=== PATIENT | male | born 1985 | race Caucasian/White ===

== ENCOUNTER 2019-11-28 20:04 | Emergency (ER) | payer SELFPAY ==
[2019-11-28 23:02] LABS: Urine Blood TRACE (NEG); Urine Glucose NEGATIVE (NEG); Urine Protein TRACE (NEG); Urine pH 5.5 (5.0-7.0)
--- NOTE | 2019-11-28 23:15 | RAD REPORT ---
EXAM DESCRIPTION: RAD - Chest Single View - 11/28/2019 10:33 pm CLINICAL HISTORY: FEVER Chest pain. COMPARISON: <Comparisons> FINDINGS: Portable technique limits examination quality. The lungs are grossly clear. The heart is normal in size. No displaced fractures. IMPRESSION: No acute intrathoracic process suspected.
[2019-11-28 23:29] LABS: Absolute Lymphocytes (CBC) 1.1 K/uL (0.7-4.9); Basophils % 0.7 % (0-1.3); Hematocrit 36.4 % (39.6-49.0); Lymphocytes % 12.8 % (15.3-44.8); MPV 8.6 fL (7.6-11.3); RBC Red Blood Cell Count 4.17 M/uL (4.33-5.43)
[2019-11-28 23:32] LABS: Protime INR 1.11
[2019-11-29 00:20] LABS: ALT/SGPT 185 U/L (12-78); AST/SGOT 100 U/L (15-37); Albumin 2.6 g/dL (3.4-5.0); Alkaline Phosphatase 901 U/L (45-117); Amylase Level 46 U/L (25-115); BUN Blood Urea Nitrogen 11 mg/dL (7-18); Bicarbonate 28 mmol/L (21-32); Bilirubin Direct 0.5 mg/dL (0-0.2); Bilirubin Total 0.7 mg/dL (0.2-1.0); Glucose Level 106 mg/dL (74-106); Lipase 87 U/L (73-393); Potassium 4.5 mmol/L (3.5-5.1); Protein, Total 8.5 g/dL (6.4-8.2); Sodium Level 135 mmol/L (136-145)
[2019-11-29 00:21] LABS: Urine Bacteria <20 /HPF (NONE SEEN); Urine Culture Reflex Order NOT NEEDED; Urine RBC <5 /HPF (NONE SEEN); Urine Urothelial Cells <5 /HPF (NONE SEEN)
--- NOTE | 2019-11-29 01:05 | EDPHYS ---
Physician Documentation [facility] Name: James Alanis Age: 34 yrs Sex: Male : 1985 Arrival Date: 11/28/2019 Time: 20:14 Bed 14 Private MD: ED Physician Bebeto Avendano HPI: 11/28 06:24 This 34 yrs old Male presents to ER via Ambulatory with complaints of Fever, tw4 Headache. 06:24 The patient reports fever, not measured (subjective). Onset: The symptoms/episode tw4 began/occurred 2 week(s) ago. Modifying factors: there are no obvious modifying factors. Associated signs and symptoms: Pertinent negatives:. The patient has not experienced similar symptoms in the past. Historical: - Allergies: 11/27 20:51 PENICILLINS; ca1 - Home Meds: 20:51 None [Active]; ca1 - PMHx: 20:51 Asthma; Hypertension; ca1 - PSHx: 20:51 None; ca1 - Immunization history:: Adult Immunizations not up to date, Flu vaccine is not up to date. - Social history:: Smoking status: Patient reports the use of cigarette tobacco products, smokes one-half pack cigarettes per day. ROS: 11/28 06:24 Constitutional: Negative for fever, chills, and weight loss, Eyes: Negative for injury, tw4 pain, redness, and discharge, Cardiovascular: Negative for chest pain, palpitations, and edema, Abdomen/GI: Negative for abdominal pain, nausea, vomiting, diarrhea, and constipation, Back: Negative for injury and pain, MS/Extremity: Negative for injury and deformity, Skin: Negative for injury, rash, and discoloration, Neuro: Negative for headache, weakness, numbness, tingling, and seizure. Respiratory: Positive for cough, Negative for dyspnea on exertion, hemoptysis, orthopnea, pleurisy, shortness of breath, sputum production. Exam: 06:24 Constitutional: This is a well developed, well nourished patient who is awake, alert, tw4 and in no acute distress. Head/Face: Normocephalic, atraumatic. Chest/axilla: Normal chest wall appearance and motion. Nontender with no deformity. No lesions are appreciated. Cardiovascular: Regular rate and rhythm with a normal S1 and S2. No gallops, murmurs, or rubs. Normal PMI, no JVD. No pulse deficits. Respiratory: Lungs have equal breath sounds bilaterally, clear to auscultation and percussion. No rales, rhonchi or wheezes noted. No increased work of breathing, no retractions or nasal flaring. Abdomen/GI: Soft, non-tender, with normal bowel sounds. No distension or tympany. No guarding or rebound. No evidence of tenderness throughout. Back: No spinal tenderness. No costovertebral tenderness. Full range of motion. Skin: Warm, dry with normal turgor. Normal color with no rashes, no lesions, and no evidence of cellulitis. MS/ Extremity: Pulses equal, no cyanosis. Neurovascular intact. Full, normal range of motion. Neuro: Awake and alert, GCS 15, oriented to person, place, time, and situation. Cranial nerves II-XII grossly intact. Motor strength 5/5 in all extremities. Sensory grossly intact. Cerebellar exam normal. Normal gait. Vital Signs: 11/27 20:45 BP 121 / 95; Pulse 120; Resp 19 S; Temp 99.4(O); Pulse Ox 99% on R/A; Weight 68.04 kg ca1 (R); Height 5 ft. 9 in. (175.26 cm) (R); 22:46 BP 120 / 80; Pulse 104; Resp 20; Pulse Ox 99% on R/A; Pain 7/10; fu 23:30 BP 118 / 69; Pulse 99; Resp 22; Temp 98.3; Pulse Ox 99% ; fu 20:45 Body Mass Index 22.15 (68.04 kg, 175.26 cm) ca1 MDM: 22:18 Patient medically screened. 11/28 06:27 Data reviewed: vital signs, nurses notes. Data reviewed: lab test result(s), CBC, tw4 electrolytes, hepatic panel, radiologic studies, plain films. Data interpreted: Pulse oximetry: Interpretation: normal. Counseling: I had a detailed discussion with the patient and/or guardian regarding: the historical points, exam findings, and any diagnostic results supporting the discharge/admit diagnosis, lab results, radiology results. 11/27 22:17 Order name: Lactate [facility] 11/27 22:17 Order name: LFT's [facility] 11/27 22:17 Order name: Amylase, Serum; Complete Time: 00:44 11/28 00:48 Interpretation: Within normal limits: JOHN 46. 11/27 22:17 Order name: Basic Metabolic Panel; Complete Time: 00:44 tw11/28 00:46 Interpretation: Normal except: NA 135. 11/27 22:17 Order name: Blood Culture Adult (2) 11/27 22:17 Order name: CBC with Diff; Complete Time: 00:44 11/28 00:46 Interpretation: Normal except: RBC 4.17; HGB 12.5; HCT 36.4; MCV 87.2; LYM% 12.8; ERIS% tw4 75.3; PLT 426. 11/27 22:17 Order name: Lipase; Complete Time: 00:44 tw11/28 00:48 Interpretation: Within normal limits: LIP 87. 11/27 22:17 Order name: Procalcitonin; Complete Time: 00:44 tw11/27 22:17 Order name: Protime (+inr); Complete Time: 00:44 11/28 00:46 Interpretation: Abnormal: PT 13.1. 11/27 22:17 Order name: Ptt, Activated; Complete Time: 00:44 11/28 00:47 Interpretation: Abnormal: PTT 42.1. 11/27 22:17 Order name: Urine Microscopic Only 11/27 22:17 Order name: Flu; Complete Time: 00:44 11/28 00:49 Interpretation: Within normal limits. 11/27 22:17 Order name: Strep; Complete Time: 00:44 11/28 00:49 Interpretation: Within normal limits. 11/27 22:18 Order name: Lactate; Complete Time: 00:44 EDMS 11/27 22:17 Order name: Chest Single View XRAY; Complete Time: 23:36 11/27 22:17 Order name: Accucheck; Complete Time: 23:35 tw4 11/27 22:17 Order name: Cardiac monitoring; Complete Time: 23:35 tw4 11/27 22:17 Order name: IV Saline Lock - Large Bore; Complete Time: 23:35 tw4 11/27 22:17 Order name: Labs collected and sent; Complete Time: 23:35 11/27 22:17 Order name: O2 Per Protocol; Complete Time: 23:35 [facility] 11/27 22:17 Order name: O2 Sat Monitoring; Complete Time: 23:35 [facility] 11/27 22:17 Order name: Urine Dipstick-Ancillary (obtain specimen); Complete Time: 22:50 [facility] 11/27 22:18 Order name: Liver (Hepatic) Function; Complete Time: 00:44 EDPA 11/28 00:48 Interpretation: Normal except: AST 100; ALT 185; ALK 901; BILID 0.5; TP 8.5; ALB 2.6; tw4 GLOB 5.9; A/G 0.4. 11/27 22:51 Order name: Urine Dipstick--Ancillary (enter results) tx5 11/27 23:24 Order name: Glucose, Ancillary Testing; Complete Time: 23:36 [facility] 11/27 23:46 Order name: COVID-19 [facility] 11/28 00:16 Order name: Throat Culture EDPA 11/28 01:29 Order name: [place] Screen Profile [facility] 11/28 01:29 Order name: Hepatitis Panel [facility] Administered Medications: No medications were administered Point of Care Testing: Blood Glucose: 11/27 23:29 Blood Glucose: 98 mg/dL; fu Ranges: Critical Glucose Levels:Adult <50 mg/dl or >400 mg/dl <40 mg/dl or >180 mg/dl Disposition: 11/29/19 01:03 Discharged to Home. Impression: Nonspecific elevation of levels of transaminase and lactic acid dehydrogenase [LDH], Acute upper respiratory infection, unspecified, Bronchitis, not specified as acute or chronic. - Condition is Stable. - Discharge Instructions: Acute Bronchitis, Adult, Metered Dose Inhaler with Spacer, Upper Respiratory Infection, Adult, Cough, Adult. - Prescriptions for Tessalon Perles 100 mg Oral Capsule - take 1 capsule by ORAL route every 8 hours As needed; 15 capsule. Albuterol Sulfate 90 mcg/actuation - inhale 1-2 puff by INHALATION route every 4-6 hours; 1 Inhaler. - Medication Reconciliation Form, Thank You Letter, Antibiotic Education, Prescription Opioid Use form. - Follow up: Private Physician; When: Upon discharge from the Emergency Department; Reason: Recheck today's complaints, Continuance of care, Re-evaluation by your physician. - Problem is new. - Symptoms have improved. Signatures: Dispatcher [employer] EDMS Stephen Liliana, LAUNDRY ROUTEMAN-C LAUNDRY ROUTEMAN-Csnw Bebeto Avendano MD MD tw4 Berta Castanon RN RN ca1 Soni Ness lt1 Corrections: (The following items were deleted from the chart) 11/28 01:48 01:03 11/29/2019 01:03 Discharged to Home. Impression: Nonspecific elevation of levels lt1 of transaminase and lactic acid dehydrogenase [LDH]; Acute upper respiratory infection, unspecified; Bronchitis, not specified as acute or chronic. Condition is Stable. Forms are Medication Reconciliation Form, Thank You Letter, Antibiotic Education, Prescription Opioid Use. Follow up: Private Physician; When: Upon discharge from the Emergency Department; Reason: Recheck today's complaints, Continuance of care, Re-evaluation by your physician. Problem is new. Symptoms have improved. tw4
--- NOTE | 2019-11-29 01:05 | ER ---
Nurse's Notes [facility] Name: James Alanis Age: 34 yrs Sex: Male : 1985 Arrival Date: 11/28/2019 Time: 20:14 Bed 14 Private MD: Diagnosis: Nonspecific elevation of levels of transaminase and lactic acid dehydrogenase [LDH];Acute upper respiratory infection, unspecified;Bronchitis, not specified as acute or chronic Presentation: 11/27 20:45 Chief complaint: Patient states: chest pains, body aches, sever headaches x 2 weeks. "I ca1 was in bed for 8 days. It went away for 5 days, then today, headaches came back which is worse, vomiting for 2 hours, SOB, cough and fever of 102.7F". Coronavirus screen: Surgical mask placed on patient. Patient moved to private room, placed in contact and droplet isolation with eye protection until further assessment. Patient reports a cough. Patient reports shortness of breath or difficulty breathing. Patient reports a measured and/or subjective temperature greater than 100.4F. Patient denies travel on a cruise ship or to a country the [facility] currently lists as an affected area. Patient denies contact with known and/or suspected case of COVID-19. Infection Prevention Nurse has been notified of patient in isolation for probable COVID-19. Ebola Screen: Patient negative for fever greater than or equal to 101.5 degrees Fahrenheit, and additional compatible Ebola Virus Disease symptoms Patient denies exposure to infectious person. Patient denies travel to an Ebola-affected area in the 21 days before illness onset. No symptoms or risks identified at this time. Initial Sepsis Screen: Does the patient meet any 2 criteria? No. Patient's initial sepsis screen is negative. Does the patient have a suspected source of infection? No. Patient's initial sepsis screen is negative. Risk Assessment: Do you want to hurt yourself or someone else? Patient reports no desire to harm self or others. Onset of symptoms was November 28, 2019. 20:45 Method Of Arrival: Ambulatory ca1 20:45 Acuity: BÁRBARA 3 ca1 Historical: - Allergies: 20:51 PENICILLINS; ca1 - Home Meds: 20:51 None [Active]; ca1 - PMHx: 20:51 Asthma; Hypertension; ca1 - PSHx: 20:51 None; ca1 - Immunization history:: Adult Immunizations not up to date, Flu vaccine is not up to date. - Social history:: Smoking status: Patient reports the use of cigarette tobacco products, smokes one-half pack cigarettes per day. Screenin/06 00:34 Abuse screen: Denies threats or abuse. Nutritional screening: No deficits noted. fu Tuberculosis screening: No symptoms or risk factors identified. Fall Risk None identified. Assessment: 11/27 21:00 General: Appears in no apparent distress. Behavior is calm, cooperative, appropriate fu for age. Pain: Complains of pain in chest, body aches, headache Pain currently is 5 out of 10 on a pain scale. Quality of pain is described as aching, Pain began 2 weeks ago. Neuro: Level of Consciousness is awake, alert, obeys commands, Oriented to person, place, time, situation, Laundry Operator are equal bilaterally Moves all extremities. Gait is steady, Speech is normal, Facial symmetry appears normal, Intact. Cardiovascular: Reports chest pain, Denies palpitations, shortness of breath, syncope. Respiratory: Airway is patent Breath sounds are clear bilaterally. GI: No signs and/or symptoms were reported involving the gastrointestinal system. : No signs and/or symptoms were reported regarding the genitourinary system. Derm: Rash noted that is on both arms, chest, adomen, back both feet. Musculoskeletal: No deficits noted. 22:00 Reassessment: No changes from previously documented assessment. Patient and/or family fu updated on plan of care and expected duration. Pain level reassessed. Patient is alert, oriented x 3, equal unlabored respirations, skin warm/dry/pink. patient on droplet precautions, wearing face mask. 11/28 00:43 Reassessment: Patient appears in no apparent distress at this time. No changes from fu previously documented assessment. Patient and/or family updated on plan of care and expected duration. Pain level reassessed. Patient is alert, oriented x 3, equal unlabored respirations, skin warm/dry/pink. 01:00 Reassessment: Patient appears in no apparent distress at this time. Patient and/or fu family updated on plan of care and expected duration. Pain level reassessed. Patient is alert, oriented x 3, equal unlabored respirations, skin warm/dry/pink. Vital Signs: 11/27 20:45 BP 121 / 95; Pulse 120; Resp 19 S; Temp 99.4(O); Pulse Ox 99% on R/A; Weight 68.04 kg ca1 (R); Height 5 ft. 9 in. (175.26 cm) (R); 22:46 BP 120 / 80; Pulse 104; Resp 20; Pulse Ox 99% on R/A; Pain 7/10; fu 23:30 BP 118 / 69; Pulse 99; Resp 22; Temp 98.3; Pulse Ox 99% ; fu 20:45 Body Mass Index 22.15 (68.04 kg, 175.26 cm) ca1 ED Course: 20:14 Patient arrived in ED. ds1 20:50 Triage completed. ca1 20:51 Arm band placed on right wrist. ca1 21:54 Demario Price, CHRISTI is Primary Nurse. fu 22:10 Inserted saline lock: 20 gauge in right forearm, using aseptic technique. Blood fu collected. 22:10 First set of blood cultures drawn by me. fu 22:16 Bebeto Avendano MD is Attending Physician. tw4 22:30 EKG done, Flu and/or RSV swab sent to lab. Strep swab sent to lab. fu 22:34 Chest Single View XRAY In Process Unspecified. EDMS 22:35 Inserted saline lock: 22 gauge in left forearm, using aseptic technique. Blood fu collected. 22:35 Second set of blood cultures drawn. fu 23:35 Lactate Sent. fu 23:35 LFT's Sent. fu 04 00:29 COVID-19 Sent. ds4 00:34 Patient has correct armband on for positive identification. Bed in low position. Call fu light in reach. 01:00 No provider procedures requiring assistance completed. fu 01:40 IV discontinued, bleeding controlled, Pressure dressing applied. fu Administered Medications: No medications were administered Point of Care Testing: Blood Glucose: 11/27 23:29 Blood Glucose: 98 mg/dL; fu Ranges: Outcome: 11/28 01:03 Discharge ordered by . tw4 01:40 Discharged to home ambulatory. fu 01:40 Condition: stable 01:40 Discharge instructions given to patient, Instructed on discharge instructions, follow up and referral plans. Demonstrated understanding of instructions, medications, Prescriptions given X 2. 01:48 Patient left the ED. lt1 Addendum: 12/01/2019 17:55 Addendum: Other attempted to contact pt regarding negative COVID-19 swab. Left message. d m5 Signatures: Dispatcher [employer] Ruby Lewis, RN RN dmDaxa Topete ds1 Jordan Avila ds4 Demario Price RN RN fu Wadley, Terrence, MD MD tw4 Berta Castanon RN CHRISTI Ness Soni lt1 Corrections: (The following items were deleted from the chart) 11/28 00:24 04 21:00 General: fu fu 11/28 00:37 00:35 Inserted saline lock: 22 gauge in left forearm, using aseptic technique. Blood fu collected. fu 00:38 11/27 23:00 Inserted saline lock: 20 gauge in right forearm, using aseptic technique. fu Blood collected. fu 11/28 00:38 11/27 23:00 Inserted saline lock: 22 gauge in left forearm, using aseptic technique. fu Blood collected. fu 11/28 01:45 01:43 CORONAVIRUS+LOS drawn and sent. ds4 ds4
[2019-11-29 02:11] VITALS: O2SAT 99
[2019-11-29 02:14] VITALS: BP 118/69; TEMP 98.3
--- NOTE | 2019-11-29 16:48 | EKG ---
Test Date: 2019-11-28 Test Time: 23:19:38 Rn Training: NENA MEASUREMENT RESULTS: Intervals: Rate: 88 IL: 174 QRSD: 90 QT: 344 QTc: 416 [place]: P: 67 IL: 174 QRS: 72 T: 58 INTERPRETIVE STATEMENTS: Normal sinus rhythm Normal ECG Compared to ECG 05/17/2017 20:31:46 Sinus bradycardia no longer present Electronically Signed On 11-29-19 16:47:23 CDT by David Corea
[2019-12-02 04:19] LABS: HBsAG Nonreactive (Nonreactive)
== END 2019-11-29 01:48 | disposition home or self-care (01) ==
LOC: ER 20:04
DX: J40 Bronchitis, not specified as acute or chronic (principal); R74.0 Nonspecific elevation of levels of transaminase and lactic acid dehydrogenase [LDH]; Z03.818 Encounter for observation for suspected exposure to other biological agents ruled out; I10 Essential (primary) hypertension; F17.210 Nicotine dependence, cigarettes, uncomplicated; Z88.0 Allergy status to penicillin
CPT/HCPCS: 36415; 71045; 80048; 80074; 80076; 81003; 81015; 82150; 82947; 83605; 83690; 84145; 85025; 85610; 85730; 86308; 87040; 87070; 87081; 87804; 93005; 99284; U0001